=== PATIENT | female | born 1970 | race Caucasian/White ===

== ENCOUNTER → 2019-07-09 14:43 | Outpatient (BNVA) | payer OTHER, SELFPAY | PROVIDERS: Visit Provider Nurse Practitioner Family | DX: S76.011A Strain of muscle, fascia and tendon of right hip, initial encounter (principal); R52 Pain, unspecified; F32.9 Major depressive disorder, single episode, unspecified; X58.XXXA Exposure to other specified factors, initial encounter | CPT/HCPCS: 73502 ==

== ENCOUNTER 2019-08-12 06:00 | Outpatient (RCR) | payer OTHER, SELFPAY | END 2019-08-25 23:59 | disposition home or self-care (01) | LOC: WPT 06:00 | PROVIDERS: PCP Nurse Practitioner Family; Visit Provider Nurse Practitioner Family | DX: M25.551 Pain in right hip (principal) | CPT/HCPCS: 97110; 97162 ==

== ENCOUNTER 2019-08-26 06:00 | Outpatient (RCR) | payer OTHER, SELFPAY | END 2019-09-25 23:59 | disposition home or self-care (01) | LOC: WPT 06:00 | PROVIDERS: PCP Nurse Practitioner Family; Visit Provider Nurse Practitioner Family | DX: M25.551 Pain in right hip (principal) | CPT/HCPCS: 97110; G0283 ==

== ENCOUNTER 2020-02-03 15:19 | Observation (INO) | payer OTHER, SELFPAY ==
[2020-02-03 15:22] VITALS: BP 200/82; PULSE 73; RESP 18; TEMP 36.4; O2SAT 97; BMI 37.1
--- NOTE | 2020-02-03 15:37 | ECG_ITS ---
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 Measurements Intervals [place] Rate: 58 P: 62 ID: [id number] QRS: 52 QRSD: 102 T: 53 QT: 440 QTc: 435 Interpretive Statements SINUS BRADYCARDIA WARNING: DATA QUALITY MAY AFFECT INTERPRETATION Compared to ECG 07/11/2015 13:15:58 No significant changes Electronically Signed On 02-03-2020 19:42:03 STARCHMAKER by Jose F Walls M.D. [id number]
--- NOTE | 2020-02-03 16:33 | ED_ITS ---
HPI - Psych General: Chief Complaint: Psychiatric Symptoms Stated Complaint: SI Time Seen by Provider: 02/03/20 15:21 Review of Systems General: Reports: 10 or more systems reviewed and unremarkable except in HPI and below PFSH ED PFSH: Medical History Depression with anxiety Essential hypertension PTSD (post-traumatic stress disorder) Social History Smoking and tobacco status: never smoked Second hand smoke exposure: No Smoking risk assessment/counseling performed?: No Alcohol intake: never Desire information about alcohol rehabilitation?: No Counseling given: No MDM - Psych Lab Data: Labs: Lab Results 02/03/20 02/03/20 02/03/20 Range/Units 15:43 15:43 16:38 WBC 10.0 (4.0-10.0) 10^3/ uL RBC 5.41 H (4.1-5.3) 10^6/u L Hgb 16.3 H (11.5-15.3) g/dL Hct 48.4 H (37.0-47.0) % MCV 89.5 (81-99) fL MCH 30.1 (28.0-34.0) pg MCHC 33.7 (30.0-36.0) g/dL RDW 13.6 (12.1-15.1) % Plt Count 258 (130-400) 10^3/c mm MPV 10.8 H (7.4-10.4) fL Neut % (Auto) 66.1 % Lymph % (Auto) 26.8 % Alexander % (Auto) 4.7 % Eos % (Auto) 1.3 % Baso % (Auto) 0.9 % Neut # (Auto) 6.62 (1.8-7.7) 10^3/u L Lymph # (Auto) 2.7 (0.8-4.8) 10^3/u L Alexander # (Auto) 0.5 (0.2-0.9) 10^3/u L Eos # (Auto) 0.1 (0.0-0.8) 10^3/u L Baso # (Auto) 0.1 (0.0-0.1) 10^3/u L Nucleated RBC % (a uto) 0 % Nucleated RBCs # 0.0 /100WBC Sodium (136-145) mmol/L Potassium (3.5-5.1) mmol/L Chloride (98-107) mmol/L Carbon Dioxide (22-29) mmol/L Anion Gap (5-19) BUN (6-20) mg/dL Creatinine (0.5-0.9) mg/dL GFR Calculation (90-130) mL/min Glucose (65-115) mg/dL Calculated Osmolal ity (285-295) mOsm/k g Calcium (8.5-10.5) mg/dL Total Bilirubin (0.15-1.2) mg/dL AST (0-32) U/L ALT (0-33) U/L Alkaline Phosphata se (35-105) IU/L Total Protein (6.6-8.7) g/dL Albumin (3.5-5.2) g/dL Globulin (1.3-4.6) g/dL Urine Color Straw (Yellow) Urine Appearance Clear (CLEAR) Urine pH 7 (5-7) Ur Specific Gravit y 1.000 L (1.005-1.030) Urine Protein Neg (Negative) Urine Glucose (UA) Norm (Normal) Urine Ketones Negative (Negative) Urine Blood Trace H (Negative) Urine Nitrate Negative (Negative) Urine Bilirubin Neg (Negative) Urine Urobilinogen Norm (Negative) mg/dL Ur Leukocyte Carla ase Negative (Negative) Urine RBC 0-4 H (0-2) /hpf Urine WBC 5-10 H (0-5) /hpf Ur Squamous Epith Cells 5-10 H (0-5) /hpf Amorphous Sediment Not Reportable Urine Bacteria Trace (NONE) /hpf Salicylates (3-10) mg/dL Urine Opiates Scre en Negative (Negative) ng/mL Acetaminophen (10-30) ug/mL Ur Barbiturates Sc reen Negative (Negative) ng/mL Ur Phencyclidine S crn Negative (Negative) ng/mL Ur Amphetamines Sc reen Negative (Negative) ng/mL U Benzodiazepines Scrn Negative (Negative) ng/mL Urine Cocaine Scre en Negative (Negative) ng/mL U Marijuana (THC) Screen Negative (Negative) ng/mL Ethyl Alcohol (0-10) mg/dL 02/03/20 Range/Units 16:38 WBC (4.0-10.0) 10^3/ uL RBC (4.1-5.3) 10^6/u L Hgb (11.5-15.3) g/dL Hct (37.0-47.0) % MCV (81-99) fL MCH (28.0-34.0) pg MCHC (30.0-36.0) g/dL RDW (12.1-15.1) % Plt Count (130-400) 10^3/c mm MPV (7.4-10.4) fL Neut % (Auto) % Lymph % (Auto) % Alexander % (Auto) % Eos % (Auto) % Baso % (Auto) % Neut # (Auto) (1.8-7.7) 10^3/u L Lymph # (Auto) (0.8-4.8) 10^3/u L Alexander # (Auto) (0.2-0.9) 10^3/u L Eos # (Auto) (0.0-0.8) 10^3/u L Baso # (Auto) (0.0-0.1) 10^3/u L Nucleated RBC % (a uto) % Nucleated RBCs # /100WBC Sodium 139 (136-145) mmol/L Potassium 4.1 (3.5-5.1) mmol/L Chloride 103 (98-107) mmol/L Carbon Dioxide 28 (22-29) mmol/L Anion Gap 12.1 (5-19) BUN 11 (6-20) mg/dL Creatinine 0.8 (0.5-0.9) mg/dL GFR Calculation 76.9 L (90-130) mL/min Glucose 105 (65-115) mg/dL Calculated Osmolal ity 288 (285-295) mOsm/k g Calcium 9.7 (8.5-10.5) mg/dL Total Bilirubin 0.3 (0.15-1.2) mg/dL AST 10 (0-32) U/L ALT 14 (0-33) U/L Alkaline Phosphata se 91 (35-105) IU/L Total Protein 7.1 (6.6-8.7) g/dL Albumin 4.2 (3.5-5.2) g/dL Globulin 2.9 (1.3-4.6) g/dL Urine Color (Yellow) Urine Appearance (CLEAR) Urine pH (5-7) Ur Specific Gravit y (1.005-1.030) Urine Protein (Negative) Urine Glucose (UA) (Normal) Urine Ketones (Negative) Urine Blood (Negative) Urine Nitrate (Negative) Urine Bilirubin (Negative) Urine Urobilinogen (Negative) mg/dL Ur Leukocyte Carla ase (Negative) Urine RBC (0-2) /hpf Urine WBC (0-5) /hpf Ur Squamous Epith Cells (0-5) /hpf Amorphous Sediment Urine Bacteria (NONE) /hpf Salicylates < 0.3 L (3-10) mg/dL Urine Opiates Scre en (Negative) ng/mL Acetaminophen < 5.0 L (10-30) ug/mL Ur Barbiturates Sc reen (Negative) ng/mL Ur Phencyclidine S crn (Negative) ng/mL Ur Amphetamines Sc reen (Negative) ng/mL U Benzodiazepines Scrn (Negative) ng/mL Urine Cocaine Scre en (Negative) ng/mL U Marijuana (THC) Screen (Negative) ng/mL Ethyl Alcohol < 10 (0-10) mg/dL EKG Data^: EKG 1: EKG interpretation date: 02/03/20 EKG interpretation time: 15:51 Interpretation: Sinus bradycardia, rate of 58, no ST elevation or depression, intervals within normal limits. Discharge Plan Discharge Patient Disposition: Admitted As Inpatient Admit Provider: Ethan Samson Coding Level of Care Code ED Puppy Walker for Ghulam Santamaria
[2020-02-03 16:40] VITALS: RESP 17
[2020-02-03] MEDS: ibuprofen 600 mg Tablet PO (16:57)
[2020-02-03 17:00] LABS: Basophils # 0.1 10^3/uL (0.0-0.1); Basophils % 0.9 %; Eosinophils # 0.1 10^3/uL (0.0-0.8); Eosinophils % 1.3 %; Hematocrit 48.4 % (37.0-47.0); Hemoglobin 16.3 g/dL (11.5-15.3); Lymphocytes # 2.7 10^3/uL (0.8-4.8); Lymphocytes % 26.8 %; Mean Corpuscular HGB Conc 33.7 g/dL (30.0-36.0); Mean Corpuscular Hemoglobin 30.1 pg (28.0-34.0); Mean Corpuscular Volume 89.5 fL (81-99); Mean Platelet Volume 10.8 fL (7.4-10.4); Monocytes # 0.5 10^3/uL (0.2-0.9); Monocytes % 4.7 %; Neutrophils # 6.62 10^3/uL (1.8-7.7); Neutrophils % 66.1 %; Nucleated Red Blood Cells % 0 %; Platelet Count 258 10^3/cmm (130-400); Red Blood Count 5.41 10^6/uL (4.1-5.3); Red Cell Distribution Width 13.6 % (12.1-15.1)
--- NOTE | 2020-02-03 17:05 | W.ED.PSYCH ---
HPI - Psych General: Chief Complaint: Psychiatric Symptoms Stated Complaint: SI Time Seen by Provider: 02/03/20 15:21 History of Present Illness: HPI Narrative: Patient is a tearful 49-year-old female seen for suicidal ideation and depressed mood. She states that 5 years ago she lost her son to an accidental firearm discharge. She found him in his car the next morning, and has had trouble ever since then. She has been seen by psychiatry and used to take SSRI medication, however she states that she stopped taking all her medication roughly 1 month ago, without consulting with her physician. She states that she has been more depressed and tearful than usual of late. She does not have a particular plan in mind, but admits to suicidal ideation. She denies intentional overdose of prescription and nonprescription medication. She complains of chest pain, but otherwise physically feels well. She states that when she stops crying, the chest pain goes away. Associated symptoms: Reports depression and suicidal ideation; Deny auditory hallucinations or homicidal ideation Review of Systems General: Reports: 10 or more systems reviewed and unremarkable except in HPI and below Psych: Reports: depression, panic attacks, hopelessness and suicidal ideation; Denies: auditory hallucinations or homicidal ideation [facility] ED PFSH: Medical History Depression with anxiety Essential hypertension PTSD (post-traumatic stress disorder) Social History Smoking and tobacco status: never smoked Second hand smoke exposure: No Smoking risk assessment/counseling performed?: No Alcohol intake: never Desire information about alcohol rehabilitation?: No Counseling given: No Physical Exam Const: COMMON NORMALS: patient oriented x3 and alert GENERAL APPEARANCE: cooperative and well kempt ORIENTATION/CONSCIOUSNESS: Yes awake, Yes oriented to person, Yes oriented to place and Yes oriented to time Neck/C-Spine: COMMON NORMALS: no JVD Resp: COMMON NORMALS: normal respiratory effort and No retractions Cardio: COMMON NORMALS: no JVD, regular rate and regular rhythm RATE: regular rate RHYTHM: regular rhythm GI: COMMON NORMALS: Soft to palpation and non-tender PALPATION: Yes Soft to palpation Neuro: COMMON NORMALS: patient oriented x3 SENSORIUM/ORIENTATION: Yes alert, Yes oriented to person, Yes oriented to place and Yes oriented to time Psych: COMMON NORMALS: mental status grossly normal, cooperative, speech normal, denies hallucinations and denies homicidal ideation; negative for denies suicidal ideation APPEARANCE: Yes grossly normal and Yes well kempt ACTIVITY/MOTOR BEHAVIOR: Yes appropriate eye contact SPEECH: Yes normal speech MOOD & AFFECT: Yes depressed mood and Yes tearful THOUGHT CONTENT: Yes Suicidality present INSIGHT: Good insight present (Psych) MDM - Psych MDM Narrative: Medical decision making narrative: Patient remained hemodynamically stable with her ED course. She was medically cleared and I spoke with psychiatry who admit the patient for her suicidal ideation. Lab Data: Labs: Lab Results 02/03/20 02/03/20 02/03/20 Range/Units 15:43 15:43 16:38 WBC 10.0 (4.0-10.0) 10^3/ uL RBC 5.41 H (4.1-5.3) 10^6/u L Hgb 16.3 H (11.5-15.3) g/dL Hct 48.4 H (37.0-47.0) % MCV 89.5 (81-99) fL MCH 30.1 (28.0-34.0) pg MCHC 33.7 (30.0-36.0) g/dL RDW 13.6 (12.1-15.1) % Plt Count 258 (130-400) 10^3/c mm MPV 10.8 H (7.4-10.4) fL Neut % (Auto) 66.1 % Lymph % (Auto) 26.8 % [place] % (Auto) 4.7 % Eos % (Auto) 1.3 % Baso % (Auto) 0.9 % Neut # (Auto) 6.62 (1.8-7.7) 10^3/u L Lymph # (Auto) 2.7 (0.8-4.8) 10^3/u L [place] # (Auto) 0.5 (0.2-0.9) 10^3/u L Eos # (Auto) 0.1 (0.0-0.8) 10^3/u L Baso # (Auto) 0.1 (0.0-0.1) 10^3/u L Nucleated RBC % (a uto) 0 % Nucleated RBCs # 0.0 /100WBC Sodium (136-145) mmol/L Potassium (3.5-5.1) mmol/L Chloride (98-107) mmol/L Carbon Dioxide (22-29) mmol/L Anion Gap (5-19) BUN (6-20) mg/dL Creatinine (0.5-0.9) mg/dL GFR Calculation (90-130) mL/min Glucose (65-115) mg/dL Calculated Osmolal ity (285-295) mOsm/k g Calcium (8.5-10.5) mg/dL Total Bilirubin (0.15-1.2) mg/dL AST (0-32) U/L ALT (0-33) U/L Alkaline Phosphata se (35-105) IU/L Total Protein (6.6-8.7) g/dL Albumin (3.5-5.2) g/dL Globulin (1.3-4.6) g/dL Urine Color Straw (Yellow) Urine Appearance Clear (CLEAR) Urine pH 7 (5-7) Ur Specific Gravit y 1.000 L (1.005-1.030) Urine Protein Neg (Negative) Urine Glucose (UA) Norm (Normal) Urine Ketones Negative (Negative) Urine Blood Trace H (Negative) Urine Nitrate Negative (Negative) Urine Bilirubin Neg (Negative) Urine Urobilinogen Norm (Negative) mg/dL Ur Leukocyte Carla ase Negative (Negative) Urine RBC 0-4 H (0-2) /hpf Urine WBC 5-10 H (0-5) /hpf Ur Squamous Epith Cells 5-10 H (0-5) /hpf Amorphous Sediment Not Reportable Urine Bacteria Trace (NONE) /hpf Salicylates (3-10) mg/dL Urine Opiates Scre en Negative (Negative) ng/mL Acetaminophen (10-30) ug/mL Ur Barbiturates Sc reen Negative (Negative) ng/mL Ur Phencyclidine S crn Negative (Negative) ng/mL Ur Amphetamines Sc reen Negative (Negative) ng/mL U Benzodiazepines Scrn Negative (Negative) ng/mL Urine Cocaine Scre en Negative (Negative) ng/mL U Marijuana (THC) Screen Negative (Negative) ng/mL Ethyl Alcohol (0-10) mg/dL 02/03/20 Range/Units 16:38 WBC (4.0-10.0) 10^3/ uL RBC (4.1-5.3) 10^6/u L Hgb (11.5-15.3) g/dL Hct (37.0-47.0) % MCV (81-99) fL MCH (28.0-34.0) pg MCHC (30.0-36.0) g/dL RDW (12.1-15.1) % Plt Count (130-400) 10^3/c mm MPV (7.4-10.4) fL Neut % (Auto) % Lymph % (Auto) % [place] % (Auto) % Eos % (Auto) % Baso % (Auto) % Neut # (Auto) (1.8-7.7) 10^3/u L Lymph # (Auto) (0.8-4.8) 10^3/u L [place] # (Auto) (0.2-0.9) 10^3/u L Eos # (Auto) (0.0-0.8) 10^3/u L Baso # (Auto) (0.0-0.1) 10^3/u L Nucleated RBC % (a uto) % Nucleated RBCs # /100WBC Sodium 139 (136-145) mmol/L Potassium 4.1 (3.5-5.1) mmol/L Chloride 103 (98-107) mmol/L Carbon Dioxide 28 (22-29) mmol/L Anion Gap 12.1 (5-19) BUN 11 (6-20) mg/dL Creatinine 0.8 (0.5-0.9) mg/dL GFR Calculation 76.9 L (90-130) mL/min Glucose 105 (65-115) mg/dL Calculated Osmolal ity 288 (285-295) mOsm/k g Calcium 9.7 (8.5-10.5) mg/dL Total Bilirubin 0.3 (0.15-1.2) mg/dL AST 10 (0-32) U/L ALT 14 (0-33) U/L Alkaline Phosphata se 91 (35-105) IU/L Total Protein 7.1 (6.6-8.7) g/dL Albumin 4.2 (3.5-5.2) g/dL Globulin 2.9 (1.3-4.6) g/dL Urine Color (Yellow) Urine Appearance (CLEAR) Urine pH (5-7) Ur Specific Gravit y (1.005-1.030) Urine Protein (Negative) Urine Glucose (UA) (Normal) Urine Ketones (Negative) Urine Blood (Negative) Urine Nitrate (Negative) Urine Bilirubin (Negative) Urine Urobilinogen (Negative) mg/dL Ur Leukocyte Carla ase (Negative) Urine RBC (0-2) /hpf Urine WBC (0-5) /hpf Ur Squamous Epith Cells (0-5) /hpf Amorphous Sediment Urine Bacteria (NONE) /hpf Salicylates < 0.3 L (3-10) mg/dL Urine Opiates Scre en (Negative) ng/mL Acetaminophen < 5.0 L (10-30) ug/mL Ur Barbiturates Sc reen (Negative) ng/mL Ur Phencyclidine S crn (Negative) ng/mL Ur Amphetamines Sc reen (Negative) ng/mL U Benzodiazepines Scrn (Negative) ng/mL Urine Cocaine Scre en (Negative) ng/mL U Marijuana (THC) Screen (Negative) ng/mL Ethyl Alcohol < 10 (0-10) mg/dL Discharge Plan Discharge Patient Disposition: Admitted As Inpatient Admit Provider: Ethan Samson Coding Level of Care Code 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
[2020-02-03 17:27] LABS: Alanine Aminotransferase 14 U/L (0-33); Albumin Level 4.2 g/dL (3.5-5.2); Alkaline Phosphatase 91 IU/L (35-105); Anion Gap 12.1 (5-19); Aspartate Amino Transferase 10 U/L (0-32); Blood Urea Nitrogen 11 mg/dL (6-20); Calcium 9.7 mg/dL (8.5-10.5); Carbon Dioxide 28 mmol/L (22-29); Chloride 103 mmol/L (98-107); Globulin 2.9 g/dL (1.3-4.6); Glomerular Filtration Rate 76.9 mL/min (90-130); Glucose 105 mg/dL (65-115); Osmolality Calculated 288 mOsm/kg (285-295); Potassium 4.1 mmol/L (3.5-5.1); Sodium 139 mmol/L (136-145); Total Bilirubin 0.3 mg/dL (0.15-1.2); Total Protein 7.1 g/dL (6.6-8.7)
[2020-02-03 17:36] LABS: Add Urine Microscopic? YES; Bilirubin Urine Neg (Negative); Blood Urine Trace (Negative); Glucose Urine UA Norm (Normal); Ketones Urine Negative (Negative); Leukocyte Esterase Urine Negative (Negative); Nitrate Urine Negative (Negative); Protein Urine Neg (Negative); Urine Appearance Clear (CLEAR); Urine Color Straw (Yellow); Urobilinogen Urine Norm (Negative); pH Urine 7 (5-7)
[2020-02-03 17:41] LABS: Acetaminophen < 5.0 ug/mL (10-30); Alcohol Level < 10 mg/dL (0-10); Salicylate < 0.3 mg/dL (3-10)
[2020-02-03 17:48] LABS: Bacteria Urine TRACE /hpf; RBC Urine 0-4 /hpf (0-2)
[2020-02-03 17:49] LABS: Add Urine Culture? No
[2020-02-03 18:21] LABS: Amphetamines Screen Urine Negative (Negative); Barbiturates Screen Urine Negative (Negative); Benzodiazepines Screen Urine Negative (Negative); Cocaine Screen Urine Negative (Negative); Opiate Screen Urine Negative (Negative); PCP Screen Urine Negative (Negative); THC Screen Urine Negative (Negative)
[2020-02-03 18:22] VITALS: BP 188/90; RESP 18
[2020-02-03 18:55] VITALS: BP 165/87; PULSE 62; RESP 18; TEMP 36.6; O2SAT 96
[2020-02-03 20:20] VITALS: BP 165/87; PULSE 62; RESP 18; TEMP 36.6; O2SAT 96
--- NOTE | 2020-02-03 21:20 | PC.NURSE ---
new admit Patient is a tearful 49-year-old female seen for suicidal ideation and depressed mood. She states that 5 years ago she lost her son to an accidental firearm discharge. She found him in his car the next morning, and has had trouble ever since then. She has been seen by psychiatry and used to take SSRI medication, however she states that she stopped taking all her medication roughly 1 month ago, without consulting with her physician.Pt stated, I have had 4 losses in 5 years. My son, then my father 14 months later, and then 2 of my sons closest friends. She states that she has been more depressed and tearful than usual of late. Pt stated, I had a major anxiety/panic attack, my don't understand me. He works on a tug boat and left for 28 days. Departure 02/02/20. She does not have a particular plan in mind, but admits to suicidal ideation. She denies intentional overdose of prescription and nonprescription medication. She complains of chest pain, but otherwise physically feels well. She states that when she stops crying, the chest pain goes away. Pt reports feeling like this 5th year since my son , has been the worst year so far, no one understands me. Pt states, I just want to smile and mean it.Mentally I'm tired, Physically I'm tired. BAL and DOA are both negative.
[2020-02-04] MEDS: acetaminophen 325 mg Tablet 650 MG PO ×2 (00:29→09:20)
[2020-02-04 06:00] VITALS: BP 168/112; PULSE 68; RESP 17; TEMP 36.5; O2SAT 93
[2020-02-04 13:23] VITALS: BP 170/118; PULSE 77; RESP 18; TEMP 36.8; O2SAT 97
[2020-02-04] MEDS: buPROPion XL (24 HR) 150 mg Tablet PO (13:42)
[2020-02-04 13:55] VITALS: BP 170/118; PULSE 77; RESP 18; TEMP 36.8; O2SAT 97
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
== END 2020-02-04 15:45 | disposition home or self-care (01) ==
LOC: ER 15:56 → NP 02-04 12:43
PROVIDERS: Admitting Provider Psychiatry & Neurology Psychiatry; Emergency Provider Student in an Organized Health Care Education/Training Program; PCP Nurse Practitioner Family; Visit Provider Psychiatry & Neurology Psychiatry
DX: R45.851 Suicidal ideations (principal); I10 Essential (primary) hypertension; F43.10 Post-traumatic stress disorder, unspecified
CPT/HCPCS: 12345; 36415; 80053; 80306; 80307; 81001; 85025; 93005; 99284; 99285; G0378

== ENCOUNTER → 2022-06-11 09:13 | Outpatient (BNVA) | payer OTHER, SELFPAY | PROVIDERS: PCP Nurse Practitioner; Visit Provider Nurse Practitioner | DX: I10 Essential (primary) hypertension (principal) | CPT/HCPCS: 80053; 80061; 82306; 84443; 85025 ==

== ENCOUNTER → 2023-03-28 10:03 | Outpatient (BNVA) | payer OTHER, SELFPAY | PROVIDERS: PCP Nurse Practitioner; Visit Provider Nurse Practitioner Family | DX: Z00.00 Encounter for general adult medical examination without abnormal findings (principal); G47.00 Insomnia, unspecified; I10 Essential (primary) hypertension; Z13.6 Encounter for screening for cardiovascular disorders; R53.82 Chronic fatigue, unspecified; F41.8 Other specified anxiety disorders; Z79.899 Other long term (current) drug therapy; E66.3 Overweight; R63.5 Abnormal weight gain | CPT/HCPCS: 80053; 80061; 81003; 83036; 84443; 85025 ==

== ENCOUNTER 2023-05-01 11:27 | Outpatient (CLI) | payer OTHER, SELFPAY ==
--- NOTE | 2023-05-01 11:30 | MM_ITS ---
WS: [id number] Bilateral screening 3D tomosynthesis digital mammogram, 05/01/2023 Clinical Data: Z12.39 - Encounter for other screening for malignant neop... Comparison: None. Findings: The breast parenchymal pattern shows fibroglandular tissue. No spiculated masses or clustered calcifi cations are seen. There are no secondary signs of carcinoma. Impression: 1. Negative bilateral mammogram with no prior exam for review. 2. Recommend annual screening mammograms. MM/[place] [id number] BIRADS: 1-Negative FOLLOW UP: 1 Year Follow-up The CAD traffic checker was used.
== END 2023-05-01 11:28 | disposition home or self-care (01) ==
PROVIDERS: PCP Nurse Practitioner Family; Visit Provider Nurse Practitioner Family
DX: Z12.31 Encounter for screening mammogram for malignant neoplasm of breast (principal)
CPT/HCPCS: 77063; 77067

== ENCOUNTER → 2023-07-29 11:07 | Outpatient (BNVA) | payer OTHER, SELFPAY | PROVIDERS: PCP Nurse Practitioner Family; Visit Provider Nurse Practitioner Family | DX: R53.82 Chronic fatigue, unspecified; I10 Essential (primary) hypertension; R53.83 Other fatigue; M25.59 Pain in other specified joint; Z79.899 Other long term (current) drug therapy | CPT/HCPCS: 80053; 80061; 82306; 83036; 84439; 84443; 85025; 85651; 86038; 86140; 86431 ==

== ENCOUNTER → 2023-09-18 14:09 | Outpatient (BNVA) | payer OTHER, SELFPAY | PROVIDERS: PCP Nurse Practitioner Family; Visit Provider Nurse Practitioner Family | DX: I10 Essential (primary) hypertension (principal); R53.83 Other fatigue | CPT/HCPCS: 80053; 80061; 85025 ==